=== PATIENT | female | born 1965 | race African-American/Black ===

== ENCOUNTER 2016-07-12 18:16 | Inpatient (IN) ==
--- NOTE | 2016-07-12 21:19 | Emergency Department Note ---
Arrival - Arrival Chief Complaint: Abdominal / Flank Pain Stated Complaint: Abdomen/ back pain ED Nursing Triage Note: PT C/O UPPER ABD PAIN THAT RADIATES AROUND TO RIGHT BACK X2 DAYS. PT TOOK HER LINZESS THINKING SHE WAS CONSTIPATED. STATES HAD GOOD BM BUT CONTINUES TO HAVE PAIN. +NAUSEA. Mode of Arrival: Ambulatory Limitations: No Limitations Source: Patient Time Seen by Provider: 07/12/16 21:13 - History of Present Illness HPI Narrative: Patient complains of abdominal pain which started 2 days ago. It was initially epigastric but has wrapped around the right upper quadrant into her back. She describes it as constant and sharp. She has had nausea but no vomiting. She initially thought this was due to constipation and took her lens assess which she said cleared her out, but she continues to have pain. She notes no exacerbating or relieving factors. She has had similar symptoms in the past with pancreatitis. She has been a heavy alcohol user in the past but quit 17 years ago. She denies fever, cough or other recent illness or symptoms. Date of Last Menstrual Period: MENOPAUSE Allergies/Adverse Reactions: Allergies Allergy/AdvReac Type Severity Reaction Status Date / Time iodine Allergy EYE Verified 07/12/16 18:36 SWELLING Penicillins Allergy SHORTNESS Verified 07/12/16 18:36 OF BREATH Shrimp Allergy EYE Verified 07/12/16 18:36 SWELLING Home Medications: Home Medications Medication Instructions Recorded Confirmed Type amLODIPine [Norvasc] 5 mg PO DAILY #90 tablet 01/30/15 07/12/16 Rx Cyclobenzaprine [Flexeril] 10 mg PO TID 05/13/15 07/12/16 History Hydrocodone/Acetaminophen 1 each PO Q6H PRN 07/12/16 07/12/16 History [Hydrocodon-Acetaminophn 10-325] Lisinopril/Hydrochlorothiazide 1 each PO DAILY 07/12/16 07/12/16 History [Lisinopril-Hctz 10-12.5 mg Tab] Simvastatin 20 mg PO DAILY 07/12/16 07/12/16 History Review of System - Review of System 12 point system: reviewed and no additional remarkable complaints except as stated - Review of System Constitutional: Absent: chills, fever Head/Ears/Nose/Throat: Absent: nasal drainage, sore throat Respiratory: Absent: cough, wheezing Cardiovascular: Absent: chest pain Gastrointestinal: Present: abdominal pain, nausea. Absent: vomiting Musculoskeletal: Present: back pain Medical,Surgical,& Family Hx - Medical History Cardio: History of: Hypertension No history of: Aneurysm, Cardiac Dysrhythmia, Cerebrovascular Disease, Congenital Heart Disease, CHF, CAD, [place], Pacemaker, PVD, Valvular Heart Disease, Cardiovascular Problems Psychological: History of: Depression Endocrine: History of: Dyslipidemia Gastrointestinal: History of: Pancreatitis, GI Problems (IBS) No history of: Bowel Obstruction, Clostridium Difficile, Crohn's Disease, Diverticulitis/ Diverticulosis, Esophageal Varices, GERD, Gastrointestinal Bleed , Hemorrhoids, Hematochezia, Hepatitis, Liver Problems, Polyps, Ulcerative Colitis, Gastrointestinal Cancer Musculoskeletal: History of: Back/Neck Problems, Degenerative Disk Disease ( seen at pain clinic for injections) - Surgical History Abdominal Surgeries: Surgical HX of: Cholecystectomy - Family History Family History: noncontributory - Social History Smoking Status: Current every day smoker Frequency of Alcohol Use: None Type of Drug Use: None Exam Physical Examination: GENERAL: Alert. No acute distress. HEENT: Normocephalic and atraumatic. There is no nasal drainage. No pharyngeal erythema or exudate. NECK: Normal inspection. Supple. No lymphadenopathy or meningismus. LUNGS: No respiratory distress. Clear to auscultation bilaterally, no wheezes, rales or rhonchi. HEART: Regular rate and rhythm. ABDOMEN: Obese, soft, nondistended with normal bowel sounds. Mild epigastric and right upper quadrant tenderness without guarding or rebound. BACK: Normal inspection. SKIN: Color normal. Warm and dry. EXTREMITIES: Nontender. Normal range of motion. No pedal edema. NEUROLOGICAL/PSYCHIATRIC: Alert and oriented 3 with normal mood and affect. Cranial nerves normal. No motor or sensory deficit. Vital Signs: Vital Signs Temperature 98.7 F 07/12/16 18:32 Pulse Rate 124 H 07/12/16 18:32 Respiratory Rate 18 07/12/16 18:32 Blood Pressure 192/113 07/12/16 18:32 O2 Sat by Pulse Oximetry 96 07/12/16 18:32 Course - Reevaluation(s) Reevaluation #1: I have discussed the patient with Dr. Freeman who will see him and admit. Time: 00:49 Results - Labs CBC & BMP: 07/12/16 20:57 07/12/16 20:57 Lab Results: I have reviewed the patients labs Labs: Laboratory Tests 07/12/16 07/12/16 20:57 22:31 Total Bilirubin 0.40 AST 17 ALT 19 Amylase 225 H Lipase 3030.0 H Urine Leukocytes Negative Urine RBC 1 Urine WBC 2 - Impressions KUB shows no acute abnormality. Disposition Clinical Impression: Pancreatitis, Abdominal pain Case discussed with: patient Disposition: Still a Patient Condition: Stable Time of Disposition: 00:49
[2016-07-12 23:11] LABS: Basophils % 0.3 % (0.0-0.8); Eosinophils # 0.1 10*3/uL (0.0-0.87); Eosinophils % 1.2 % (0.00-10.9); Hematocrit 42.7 VOL% (35.7-47.0); Hemoglobin 13.5 GM/DL (12.0-16.0); Immature Granulocytes % 0.3 %; Immature Granulocytes Absolute 0.04 #; Lymphocytes # 2.1 10*3/uL (1.4-4.0); Lymphocytes % 17.7 % (21.3-54.2); Mean Corpuscular HGB Conc 31.6 GM/DL (32-36); Mean Corpuscular Hemoglobin 24 PG (27-34); Mean Corpuscular Volume 74.9 FL (87-102); Mean Platelet Volume 9.9 FL (9.6-12.0); Monocytes # 0.6 10*3/uL (0.11-0.8); Monocytes % 4.7 % (1.7-12.7); Neutrophils % 75.8 % (38.7-73.9); Platelet Count 268 10*3/uL (130-400); Red Cell Distribution Width 15.9 % (9.3-17.3); White Blood Count 11.8 10*3/uL (4.5-13.71)
[2016-07-12 23:36] LABS: Albumin 3.4 G/DL (3.4-5.0); Bilirubin,Total 0.4 MG/DL (0.2-1.0); Osmolality,Calculated 285.8 MOS/KG (273-304); Potassium 3.9 MMOL/L (3.5-5.1); Total Protein 7.6 G/DL (6.4-8.3)
[2016-07-12 23:45] LABS: Apearance,Urine CLEAR (Clear); Bilirubin,Urine Negative (Negative); Blood, Urine Negative (Negative); Glucose,Urine (UA) Negative (Negative); Ketones,Urine Negative (Negative); Mucus,Urine Occasional /LPF (Occasional); Nitrite,Urine Negative (Negative); Protein,Urine Negative; RBC,Urine 1 /HPF (0-4); Squamous Epithelial Cell,Urine Occasional /HPF (0-10); Urine Color Yellow (Yellow); Urine Specific Gravity 1.011 (1.001-1.035); Urine Urobilinogen < 2.0 EU/DL (0.2-1.0); WBC,Urine 2 /HPF (0-6)
[2016-07-13] MEDS ORDERED: HYDROmorphone 2 MG/1 ML VIAL ONE (00:54)
[2016-07-13] MEDS ORDERED: ONDANSETRON 4 MG/2 ML VIAL ONE (00:54)
[2016-07-13] MEDS ORDERED: ONDANSETRON 4 MG/2 ML VIAL IV STA (00:57)
[2016-07-13] MEDS ORDERED: HYDROmorphone 2 MG/1 ML VIAL IV STA (00:58)
[2016-07-13] MEDS ORDERED: ONDANSETRON 4 MG/2 ML VIAL IV PRN (03:12)
[2016-07-13] MEDS ORDERED: HYDROmorphone 2 MG/1 ML VIAL IV PRN (03:12)
[2016-07-13] MEDS ORDERED: ACETAMINOPHEN 325 MG TABLET PO PRN (03:12)
[2016-07-13] MEDS: LEVOFLOXACIN INJ 500 MG in PREMIX 1 EACH IV SCH (03:24)
[2016-07-13] MEDS: SODIUM CHLORIDE 0.9% 1,000 ML IV SCH ×2 (03:24→14:16)
[2016-07-13] MEDS: ENOXAPARIN 30 MG/0.3 ML SYRINGE SUBCUT SCH (03:25)
[2016-07-13 06:24] LABS: Basophils % 0.2 % (0.0-0.8); Eosinophils # 0.1 10*3/uL (0.0-0.87); Eosinophils % 1.3 % (0.00-10.9); Hematocrit 41.3 VOL% (35.7-47.0); Hemoglobin 12.8 GM/DL (12.0-16.0); Immature Granulocytes % 0.2 %; Immature Granulocytes Absolute 0.02 #; Lymphocytes # 2.3 10*3/uL (1.4-4.0); Lymphocytes % 25.6 % (21.3-54.2); Mean Corpuscular Hemoglobin 24 PG (27-34); Mean Corpuscular Volume 76.3 FL (87-102); Mean Platelet Volume 10.3 FL (9.6-12.0); Monocytes # 0.6 10*3/uL (0.11-0.8); Monocytes % 6.6 % (1.7-12.7); Neutrophils # 6.1 10*3/uL (1.4-7.4); Neutrophils % 66.1 % (38.7-73.9); Platelet Count 273 10*3/uL (130-400); Red Blood Count 5.41 10*6/uL (3.8-5.5); Red Cell Distribution Width 15.9 % (9.3-17.3); White Blood Count 9.2 10*3/uL (4.5-13.71)
[2016-07-13 06:53] LABS: Alanine Aminotransferase 16 U/L (13-56); Albumin 3.1 G/DL (3.4-5.0); Alkaline Phosphatase 97 U/L (45-117); Aspartate Amino Transferase 9 U/L (0-37); Blood Urea Nitrogen 8 MG/DL (7-18); Calcium 9.1 MG/DL (8.5-10.1); Glucose 100 MG/DL (74-106); Osmolality,Calculated 283.8 MOS/KG (273-304); Potassium 4.1 MMOL/L (3.5-5.1); Sodium 144 MMOL/L (136-145); Total Protein 7.1 G/DL (6.4-8.3); Troponin I Only < 0.015 NG/ML (0.00-0.045)
--- NOTE | 2016-07-13 07:07 | Hospitalist History & Physical ---
Assessment and Plan (1) Acute pancreatitis Status: Acute Assessment and plan: The patient is admitted to the hospital with recurring acute pancreatitis apparently on account of recurring liver stones in the patient with previous cholecystectomy. The patient will be hydrated, and treated with narcotic pain relief. The usual episodes resolve over 2-3 days and this appears to be similar to previous episodes. Current Visit: No Qualifiers: Pancreatitis type: idiopathic (2) Essential hypertension Status: Chronic Current Visit: No (3) Obesity (BMI 35.0-39.9 without comorbidity) Status: Acute Current Visit: No (4) Abdominal pain Status: Acute Current Visit: Yes History of Present Illness Chief complaint: abdominal pain History of present illness: Ms. Alvarez is a 50 year old female with history of recurring pancreatitis apparently caused by passing liver stones. The patient has previous cholecystectomy. The spells of pancreatitis has not been associated with alcohol consumption. The patient's symptoms this time but can't 48 hours prior to admission to the hospital and were initially mild and similar to constipation. The patient took Linzess to relieve her constipation, but this did not alleviate the right upper quadrant pain. The pain worsened over the next 48 hours and she came to the emergency room. The patient's symptom is moderate to severe, continuous, and colicky in nature. The patient's pain is not associated with fever, chills, dysuria, shortness of breath. The patient states symptoms have not been associated with weight loss. Home Medications Medication Instructions Recorded Confirmed Type amLODIPine [Norvasc] 5 mg PO DAILY #90 tablet 01/30/15 07/12/16 Rx Cyclobenzaprine [Flexeril] 10 mg PO TID 05/13/15 07/12/16 History Hydrocodone/Acetaminophen 1 each PO Q6H PRN 07/12/16 07/12/16 History [Hydrocodon-Acetaminophn 10-325] Lisinopril/Hydrochlorothiazide 1 each PO DAILY 07/12/16 07/12/16 History [Lisinopril-Hctz 10-12.5 mg Tab] Simvastatin 20 mg PO DAILY 07/12/16 07/12/16 History Allergies Allergy/AdvReac Type Severity Reaction Status Date / Time iodine Allergy EYE Verified 07/12/16 18:36 SWELLING Penicillins Allergy SHORTNESS Verified 07/12/16 18:36 OF BREATH Shrimp Allergy EYE Verified 07/12/16 18:36 SWELLING Medical,Surgical,& Family Hx - Medical History Cardio: History of: Hypertension No history of: Aneurysm, Cardiac Dysrhythmia, Cerebrovascular Disease, Congenital Heart Disease, CHF, CAD, [place], Pacemaker, PVD, Valvular Heart Disease, Cardiovascular Problems Psychological: History of: Depression, Psychiatric Problems (PTSD) Endocrine: History of: Dyslipidemia Gastrointestinal: History of: Pancreatitis, GI Problems (IBS) No history of: Bowel Obstruction, Clostridium Difficile, Crohn's Disease, Diverticulitis/ Diverticulosis, Esophageal Varices, GERD, Gastrointestinal Bleed , Hemorrhoids, Hematochezia, Hepatitis, Liver Problems, Polyps, Ulcerative Colitis, Gastrointestinal Cancer Musculoskeletal: History of: Back/Neck Problems, Degenerative Disk Disease ( seen at pain clinic for injections) Hematology: History of: Clotting Problems (DVT) - Surgical History Cardiac Surgeries: Sugical HX of: Cardiac Catheterization Patient Denies: Femoral-Popliteal Bypass Graft, Cardiac Surgery, Carotid Endarterectomy, Internal Defibrillator, Vascular Access Devices HEENT Surgeries: Patient denies: Carotid Endarterectomy Abdominal Surgeries: Surgical HX of: Cholecystectomy Patient denies: Abdominal Surgery, Appendectomy, Colonoscopy, Gastric Bypass Surgery, EGD, Hernia Repair, Splenectomy - Family History Family History: Reports;: Family Hypertension - Social History Smoking Status: Current every day smoker Frequency of Alcohol Use: None Type of Drug Use: None Marital Status: Single Lives With:: Alone Functional capacity: independent ambulation 12 point system: reviewed and no additional remarkable complaints except as stated Exam - Constitutional Vitals: Period Temp Pulse Resp BP Sys/Rosario Pulse Ox Last 24 Hr 108-112 16-20 108-142/62-89 94-96 Exam: Constitutional System: Moderate distress on account of abdominal pain. No tremulousness. Head: Normocephalic, atraumatic. Ears, Nose and Throat System: No evidence of Otitis or Mastoiditis. No epistaxis or discharge Eyes System: Pupils equal, round, and reactive. Extraocular muscles intact. Neck: Supple, without adenopathy, No jugular venous distention. No thyromegaly , neck mass, or prior surgery apparent. Respiratory System: Chest clear to auscultation. Cardiovascular System: Heart with regular rate and rhythm. No murmur. GI System: Abdomen soft, moderate right upper quadrant tender. oactive bowel sounds present. Musculoskeletal System: limbs with no pedal edema. Full distal pulses. Neurological System: No discernable sensory deficit. No aphasia Psychiatric System: Conversation is rational Results - Labs CBC & BMP: 07/13/16 05:34 07/13/16 05:34 Lab Results: I have reviewed the past 24 hour labs Labs: Lipase elevated greater than 3000
--- NOTE | 2016-07-13 07:24 | XRay Report ---
Referring Physician: Handy Simpson Exam: XR KUB Date: July 12, 2016 at 10:43 PM Reason: Generalized abdominal pain Comparison: Abdomen 2 views October 15, 2015 Findings: There are surgical clips within the right upper quadrant, suggesting cholecystectomy. There is no evidence of bowel obstruction or free air. A 0.4 cm density is now seen at the right lower quadrant and may represent artifact or a foreign body, possibly within the cecum or soft tissues. No acute osseous process is seen. Impression: 1. No acute abdominal process is identified. 2. A 0.4 cm density is now seen at the right lower quadrant. It could represent artifact or a foreign body, possibly within the cecum or soft tissues. PROCEDURE INTERPRETED AT [facility] DEPARTMENT OF RADIOLOGY Final Report Signed by: Dr. Wander Tamez
[2016-07-13] MEDS: amLODIPine 5 MG TABLET PO SCH (08:46)
[2016-07-13] MEDS: CYCLOBENZAPRINE 10 MG TABLET PO SCH ×3 (08:46→21:38)
--- NOTE | 2016-07-13 10:37 | Gastrointestinal Consult Note ---
Assessment and Plan (1) Acute pancreatitis Status: Acute Assessment and plan: 07/13-Two day history of RUQ pain, radiating to back, worsened by meals. Hx of pancreatitis in past, now with third flare since 2012. Lipase 3000 on admission. Change to NPO, sips and chips only. Recheck lipase level. Plan and addendum to follow by DR Dior. Current Visit: No Qualifiers: Pancreatitis type: idiopathic History of Present Illness Chief complaint: Pancreatitis History of present illness: Ms. Alvarez is a 50 year old female who presents to the hospital with onset of RUQ pain x 2 days. Pt states that two days ago she had a gradual onset of RUQ pain that radiated thru to her back and around her side. She felt it was related to constipation and took a Linzess however a bowel movement did not relieve the pain. She states the pain initially was mild in nature however as the day progressed it became more severe. She states she was unable to sleep night before last therefore came to the ER for evaluation. She has a history of pancreatitis which she states this is her third flare with the first in 2012, second in 2014. She has a history of heavy alcohol use however stopped drinking 18 years ago. She states that the first flare she had drank a small beer prior to the pain onset. She denies any alcohol use at all since 2014. She also is noted in 2012 to have had a cholecystectomy and had to return for ERCP due to a common bile duct stone. She states that this flare feels typical of her usual pain with pancreatitis. Denies any fever, chills, nausea or vomiting. Denies any recent new medications. LFTs are unremarkable other than mildly elevated bilirubin at 1.5. WBC 9. Lipase 3030, amylast 225 on admission. KUB shows no acute processes. She was given clear liquid diet on admission however after our discussion she admits it worsened her pain. Will change her back to NPO with sips and chips at this time. Home Medications Medication Instructions Recorded Confirmed Type amLODIPine [Norvasc] 5 mg PO DAILY #90 tablet 01/30/15 07/12/16 Rx Cyclobenzaprine [Flexeril] 10 mg PO TID 05/13/15 07/12/16 History Hydrocodone/Acetaminophen 1 each PO Q6H PRN 07/12/16 07/12/16 History [Hydrocodon-Acetaminophn 10-325] Lisinopril/Hydrochlorothiazide 1 each PO DAILY 07/12/16 07/12/16 History [Lisinopril-Hctz 10-12.5 mg Tab] Simvastatin 20 mg PO DAILY 07/12/16 07/12/16 History Allergies Allergy/AdvReac Type Severity Reaction Status Date / Time iodine Allergy EYE Verified 07/12/16 18:36 SWELLING Penicillins Allergy SHORTNESS Verified 07/12/16 18:36 OF BREATH Shrimp Allergy EYE Verified 07/12/16 18:36 SWELLING Medical,Surgical,& Family Hx - Medical History Cardio: History of: Hypertension No history of: Aneurysm, Cardiac Dysrhythmia, Cerebrovascular Disease, Congenital Heart Disease, CHF, CAD, [place], Pacemaker, PVD, Valvular Heart Disease, Cardiovascular Problems Psychological: History of: Depression, Psychiatric Problems (PTSD) Endocrine: History of: Dyslipidemia Gastrointestinal: History of: Pancreatitis, GI Problems (IBS) No history of: Bowel Obstruction, Clostridium Difficile, Crohn's Disease, Diverticulitis/ Diverticulosis, Esophageal Varices, GERD, Gastrointestinal Bleed , Hemorrhoids, Hematochezia, Hepatitis, Liver Problems, Polyps, Ulcerative Colitis, Gastrointestinal Cancer Musculoskeletal: History of: Back/Neck Problems, Degenerative Disk Disease ( seen at pain clinic for injections) Hematology: History of: Clotting Problems (DVT) - Surgical History Cardiac Surgeries: Sugical HX of: Cardiac Catheterization Patient Denies: Femoral-Popliteal Bypass Graft, Cardiac Surgery, Carotid Endarterectomy, Internal Defibrillator, Vascular Access Devices HEENT Surgeries: Patient denies: Carotid Endarterectomy Abdominal Surgeries: Surgical HX of: Cholecystectomy Patient denies: Abdominal Surgery, Appendectomy, Colonoscopy, Gastric Bypass Surgery, EGD, Hernia Repair, Splenectomy - Family History Family History: Reports;: Family Hypertension - Social History Smoking Status: Current every day smoker Frequency of Alcohol Use: None Type of Drug Use: None 12 point system: reviewed and no additional remarkable complaints except as stated - Constitutional Constitutional: Present: as per HPI - EENT Eyes: Present: as per HPI Ears: Present: as per HPI Nose, mouth and throat: Present: as per HPI - Cardiovascular Cardiovascular: Present: as per HPI - Respiratory Respiratory: Present: as per HPI - Gastrointestinal Gastrointestinal: Present: as per HPI, abdominal pain - Genitourinary Genitourinary: Present: as per HPI - Musculoskeletal Musculoskeletal: Present: as per HPI - Neurological Neurological: Present: as per HPI - Psychiatric Psychiatric: Present: as per HPI - Endocrine Endocrine: Present: as per HPI - Hematologic/Lymphatic Hematologic/Lymphatic: Present: as per HPI Exam - Constitutional Vitals: Period Temp Pulse Resp BP Sys/Rosario Pulse Ox Last 24 Hr 97.4 F 107-112 16-22 108-142/62-89 94-96 General appearance: no acute distress, over weight - Head Head exam: Present: normal inspection, normocephalic - Eye Eye exam: Present: other (lids and conjunctiva unremarkable). Absent: scleral icterus - ENT ENT exam: Present: normal exam, normal oropharynx - Neck Neck exam: Present: normal inspection - Respiratory Respiratory exam: Present: clear to auscultation bilaterally. Absent: rales, rhonchi, wheezes - Cardiovascular Cardiovascular exam: Present: regular rate and rhythm. Absent: diastolic murmur , JVD, systolic murmur - GI/Abdominal GI/Abdominal exam: Present: normal bowel sounds, tenderness, soft. Absent: ascites, distended, mass, organomegaly - Extremities Exam Extremities exam: Present: normal inspection, full ROM - Back Exam Back exam: Present: normal inspection - Neurological Exam Neurological exam: Present: alert, oriented X3 - Psychiatric Psychiatric exam: Present: normal affect, normal mood - Skin Skin exam: Present: normal color, warm, dry Results - Labs CBC & BMP: 07/13/16 05:34 07/13/16 05:34 Lab Results: I have reviewed the past 24 hour labs
[2016-07-14] MEDS: SODIUM CHLORIDE 0.9% 1,000 ML IV SCH ×3 (00:23→21:01)
[2016-07-14 06:03] LABS: Calcium 8.7 MG/DL (8.5-10.1); Magnesium 1.9 MG/DL (1.8-2.4); Osmolality,Calculated 285.7 MOS/KG (273-304); Potassium 4.1 MMOL/L (3.5-5.1)
[2016-07-14] MEDS ORDERED: MAGNESIUM HYDROXIDE SUSP 30 ML UDCUP PO ONE (08:54)
--- NOTE | 2016-07-14 08:58 | Hospitalist Progress Note ---
Assessment and Plan (1) Pancreatitis Status: Acute Assessment and plan: Impression: 1. Acute pancreatitis, etiology not known. She is status post cholecystectomy. This may be medication induced. Plan: She appears to have improved. We will advance her diet. She is specifically requesting a cup of coffee and some Jell-O. We will try some milk of magnesia for constipation. She may be about ready for discharge in the next 1 or 2 days. This note was completed using [employer] voice recognition software. There may be food quality technician errors as a result. Current Visit: Yes Hospitalist: Subjective Interval history: We are following the patient for pancreatitis. The patient's diet had been advanced yesterday, but she apparently developed some worsening abdominal pain. She says that she like to try some coffee and mashed potatoes today. She denies any pain at this time. Her only complaint is that her bowels have not moved in the past 3 days or so. Exam - Constitutional Vitals: Period Temp Pulse Resp BP Sys/Rosario Pulse Ox Last 24 Hr 97 F-98.8 F 91-115 18-22 116-154/73-107 94-99 Heart is regular with no murmur or gallop. Lungs are clear with no rales or wheezes. Abdomen is protuberant and soft with occasional bowel sounds. There is no tenderness noted. Results - Labs CBC & BMP: 07/13/16 05:34 07/14/16 04:54 Lab Results: I have reviewed the past 24 hour labs
[2016-07-14] MEDS: ENOXAPARIN 30 MG/0.3 ML SYRINGE SUBCUT SCH (09:18)
[2016-07-14] MEDS: CYCLOBENZAPRINE 10 MG TABLET PO SCH ×3 (09:18→21:01)
[2016-07-14] MEDS: amLODIPine 5 MG TABLET PO SCH (09:19)
[2016-07-14] MEDS: LEVOFLOXACIN INJ 500 MG in PREMIX 1 EACH IV SCH (09:49)
--- NOTE | 2016-07-14 15:12 | Gastrointestinal Progress Note ---
Assessment and Plan (1) Acute pancreatitis Status: Acute Assessment and plan: Patient admitted with recurrent acute pancreatitis appears improved. She is currently symptom-free. Agree with advancing diet and, if tolerates, could probably discharge tomorrow. We are holding her lisinopril/hydrochlorothiazide and Lipitor for now, both of which have been associated with acute pancreatitis. Outpatient MRI of pancreas is also planned in 2 or 3 weeks. Current Visit: No Qualifiers: Pancreatitis type: idiopathic Gastroenterology - PN: Subj Interval history: Patient appears better with no abdominal pain or nausea. She is tolerating liquid diet so far. Exam (Progress Note) - Constitutional Vitals: Period Temp Pulse Resp BP Sys/Rosario Pulse Ox Last 24 Hr 97.7 F-98.8 F 91-115 18-21 116-154/73-90 94-99 General appearance: no acute distress, over weight - Head Head exam: Present: normocephalic, atraumatic - Eye Eye exam: Present: EOMI. Absent: scleral icterus - Respiratory Respiratory exam: Present: clear to auscultation bilaterally. Absent: wheezes - GI/Abdominal GI/Abdominal exam: Present: normal bowel sounds, soft. Absent: distended, organomegaly, tenderness - Extremities Exam Extremities exam: Absent: calf tenderness, edema - Neurological Exam Neurological exam: Present: alert, oriented X3, CN II-XII intact - Psychiatric Psychiatric exam: Present: normal affect, normal mood - Skin Skin exam: Present: warm, dry Results - Labs CBC & BMP: 07/13/16 05:34 07/14/16 04:54 Lab Results: I have reviewed the past 24 hour labs
[2016-07-15] MEDS: SODIUM CHLORIDE 0.9% 1,000 ML IV SCH (06:59)
[2016-07-15] MEDS: CYCLOBENZAPRINE 10 MG TABLET PO SCH (08:32)
[2016-07-15] MEDS: ENOXAPARIN 30 MG/0.3 ML SYRINGE SUBCUT SCH (08:32)
[2016-07-15] MEDS: LEVOFLOXACIN INJ 500 MG in PREMIX 1 EACH IV SCH (08:32)
[2016-07-15] MEDS: amLODIPine 5 MG TABLET PO SCH (08:32)
--- NOTE | 2016-07-15 09:05 | Discharge Summary ---
Hospital Course - Hospital Course Hospital Course: Discharge diagnosis: #1. Acute pancreatitis, possibly medication induced #2. Hypertension The patient presented to the hospital for evaluation of some abdominal pain. She is known to have pancreatitis in the past. Etiology has never been determined with certainty. She was seen by GI. The question of medication- induced pancreatitis was raised, as she is taking both lisinopril and HCTZ. After day or so, her symptoms improved. She was given a regular diet and tolerated this. On the day of discharge, she cleaned her plate and requested that we let her go home. We will get an outpatient MRI of the pancreas in the next few weeks. This note was completed using [employer] voice recognition software. There may be medical charge entry specialist errors as a result. Diagnosis - Discharge Diagnosis (1) Pancreatitis Status: Acute Discharge Plan - Discharge Data Disposition: Disch To Home/Self Care Condition at Discharge: Stable Discharge Diet: advance to your usual diet Activity: resume usual activities as tolerated Hygiene: no restrictions Weight Bearing at Discharge: full weight bearing Driving: no restrictions - Discharge Medications Continue amLODIPine [Norvasc] 5 mg PO DAILY #90 tablet Cyclobenzaprine [Flexeril] 10 mg PO TID Hydrocodone/Acetaminophen [Hydrocodon-Acetaminophn 10-325] 1 each PO Q6H PRN PRN Reason: Pain Simvastatin 20 mg PO DAILY Discontinued Lisinopril/Hydrochlorothiazide [Lisinopril-Hctz 10-12.5 mg Tab] 1 each PO DAILY - Follow Up or Referral Follow Up: Handy Dior MD [Physician] - - Forms/Instructions Additional Discharge Instructions: Please schedule OP MRI of pancreas 2-3 weeks Exam - Constitutional Vitals: Period Temp Pulse Resp BP Sys/Rosario Pulse Ox Last 24 Hr 97.7 F-98.7 F 93-109 18-20 128-148/76-89 96-98 Heart is regular with no murmur or gallop. Lungs are clear with no rales or wheezes. Abdomen is obese and soft with occasional bowel sounds and no tenderness. DS: Provider Date of admission: 07/13/16 01:00 Primary care physician: . No PCP Attending physician on admission: Julianne Monreal MD Consults: 07/13/16 03:12 Consult to Physician [CONS] Routine Comment: abdominal pain, elevated lipase Consulting Provider: Handy Dior Person Notified: TIFFANY Date Notified: 07/13/16 Time Notified: 09:16 Discharging clinician: John Slade MD Expected date of discharge: 07/15/16
[2016-07-15 14:34] VITALS: BP 154/89
== END 2016-07-15 11:30 | disposition home or self-care (01) | DRG 440 ==
LOC: N.ED 18:16 → N.EDINP 07-13 01:00 → SUATTDRO 07-13 01:00 → N.2E 07-13 02:11
PROVIDERS: ADMIT Internal Medicine; ATTEND Internal Medicine Geriatric Medicine

== ENCOUNTER 2017-03-10 21:34 | Observation (INO) ==
--- NOTE | 2017-03-10 23:11 | EKG Report ---
Stationary ECG Study [facility] ER Test Date: 03/10/2017 11:09:37 PM Pat Name: BRIANNA ANDERSON Department: Room: Gender: F Audio Visual Aide: : 1965 Requested by: Mal Sears Order Number: [id number] Reading MD: WARREN GALLARDO Intervals [place] Rate: 74 P: 45 PA: 144 QRS: 62 QRSD: 86 T: 74 QT: 378 QTc: 406 Interpretive Statements SINUS RHYTHM Electronically Signed On 03-15-17 06:15:12 CDT by WARREN GALLARDO [email or web address]
[2017-03-10 23:48] LABS: Basophils # 0.1 10*3/uL (0.0-0.2); Basophils % 0.5 % (0.0-0.8); Eosinophils # 0.2 10*3/uL (0.0-0.87); Eosinophils % 2.1 % (0.00-10.9); Hematocrit 42.6 VOL% (35.7-47.0); Hemoglobin 13.5 GM/DL (12.0-16.0); Immature Granulocytes % 0.3 %; Immature Granulocytes Absolute 0.03 #; Lymphocytes # 2.3 10*3/uL (1.4-4.0); Lymphocytes % 25.1 % (21.3-54.2); Mean Corpuscular HGB Conc 31.7 GM/DL (32-36); Mean Corpuscular Hemoglobin 24 PG (27-34); Mean Corpuscular Volume 74.2 FL (87-102); Mean Platelet Volume 10.8 FL (9.6-12.0); Monocytes # 0.6 10*3/uL (0.11-0.8); Monocytes % 6.4 % (1.7-12.7); Neutrophils % 65.6 % (38.7-73.9); Platelet Count 237 T/CUMM (130-400); Red Blood Count 5.74 MC/CUMM (3.8-5.5); Red Cell Distribution Width 18.1 % (9.3-17.3); White Blood Count 9.2 T/CUMM (4-12)
[2017-03-11 00:13] LABS: Alanine Aminotransferase 23 U/L (13-56); Albumin 3.4 G/DL (3.4-5.0); Alkaline Phosphatase 114 U/L (45-117); Aspartate Amino Transferase 14 U/L (0-37); Bilirubin,Total < 0.39 MG/DL (0.2-1.0); Blood Urea Nitrogen 9 MG/DL (7-18); Glucose 125 MG/DL (74-106); Osmolality,Calculated 280.3 MOS/KG (273-304); Potassium 4.1 MMOL/L (3.5-5.1); Sodium 141 MMOL/L (136-145); Total Protein 7.3 G/DL (6.4-8.3); Troponin I Only < 0.015 NG/ML (0.00-0.045)
[2017-03-11] MEDS ORDERED: HYDROmorphone 2 MG/1 ML VIAL IV STA (00:29)
--- NOTE | 2017-03-11 00:33 | Emergency Department Note ---
Balaji Cronin Manpreet, am scribing for, and in the presence of, Mal Sears MD 22:44 . Orion Cronin Hans, MD, personally performed the services described in this documentation, ascribed by Yusef Carpio in my presence, and it is both accurate and complete . Arrival - Arrival Chief Complaint: Abdominal / Flank Pain Stated Complaint: Stomach,back & leg pain/spasm ED Nursing Triage Note: pt to triage w c/o abd pain that radiates to back and neck. pt was seen last night for abdominal pain and states she has been taking the medicines prescribed with no relief. Mode of Arrival: Ambulatory Limitations: No Limitations Source: Patient Time Seen by Provider: 03/10/17 22:15 - History of Present Illness HPI Narrative: Pt is a 51 y/o female who presents to the ED with CC of Abd pain onset 3 days ago. Pt states the pain starts at the center of her chest and goes down to her lower Abd on the right side. Pt denies any N/V/D or blood in her stool. Pt also c/o cramping in her legs. Pt was seen in the ED yesterday and told she might have a gas bubble. Pt denies any EtOH use but reports of smoking 6 cigarettes a day. No other pains/complaints reported to the ED. Onset (ago): day(s) (3 days) Consistency: constant Severity: moderate Allergies/Adverse Reactions: Allergies Allergy/AdvReac Type Severity Reaction Status Date / Time iodine Allergy EYE Verified 03/10/17 21:54 SWELLING Penicillins Allergy SHORTNESS Verified 03/10/17 21:54 OF BREATH Shrimp Allergy EYE Verified 03/10/17 21:54 SWELLING Home Medications: Home Medications Medication Instructions Recorded Confirmed Type amLODIPine [Norvasc] 5 mg PO DAILY #90 tablet 01/30/15 03/10/17 Rx Hydrocodone/Acetaminophen 1 each PO Q6H PRN 07/12/16 03/10/17 History [Hydrocodon-Acetaminophn 10-325] Cyclobenzaprine [Flexeril] 10 mg PO TID #14 tablet 03/09/17 03/10/17 Rx HYDROcodone/ACETAMIN 7.5-325 1 tablet PO Q6H #14 tablet 03/09/17 03/10/17 Rx [[place] 7.5-325] Review of System - Review of System 12 point system: reviewed and no additional remarkable complaints except as stated - Review of System Constitutional: Absent: chills, diaphoresis, fever Respiratory: Absent: cough, respiratory distress, wheezing Cardiovascular: Absent: chest pain Gastrointestinal: Present: abdominal pain. Absent: nausea, vomiting, diarrhea Musculoskeletal: Present: leg pain (Cramping in leg). Absent: back pain, neck pain Neurological: Absent: headache, weakness, numbness, paresthesias Medical,Surgical,& Family Hx - Medical History Cardio: History of: Hypertension No history of: Aneurysm, Cardiac Dysrhythmia, Cerebrovascular Disease, Congenital Heart Disease, CHF, CAD, [place], Pacemaker, PVD, Valvular Heart Disease, Cardiovascular Problems Psychological: History of: Depression, Psychiatric Problems (PTSD) Endocrine: History of: Dyslipidemia Gastrointestinal: History of: Pancreatitis, GI Problems (IBS) No history of: Bowel Obstruction, Clostridium Difficile, Crohn's Disease, Diverticulitis/ Diverticulosis, Esophageal Varices, GERD, Gastrointestinal Bleed , Hemorrhoids, Hematochezia, Hepatitis, Liver Problems, Polyps, Ulcerative Colitis, Gastrointestinal Cancer Musculoskeletal: History of: Back/Neck Problems, Degenerative Disk Disease ( seen at pain clinic for injections) Hematology: History of: Clotting Problems (DVT) - Surgical History Cardiac Surgeries: Sugical HX of: Cardiac Catheterization Patient Denies: Femoral-Popliteal Bypass Graft, Cardiac Surgery, Carotid Endarterectomy, Internal Defibrillator, Vascular Access Devices HEENT Surgeries: Patient denies: Carotid Endarterectomy Abdominal Surgeries: Surgical HX of: Cholecystectomy Patient denies: Abdominal Surgery, Appendectomy, Colonoscopy, Gastric Bypass Surgery, EGD, Hernia Repair, Splenectomy - Family History Family History: Reports;: Family Hypertension - Social History Smoking Status: Current every day smoker Frequency of Alcohol Use: None Type of Drug Use: None Exam Vital Signs: Vital Signs Temperature 97.6 F 03/10/17 21:49 Pulse Rate 96 H 03/10/17 21:49 Respiratory Rate 14 03/10/17 21:49 Blood Pressure 183/110 03/10/17 21:49 O2 Sat by Pulse Oximetry 98 03/10/17 21:49 - General General appearance: alert, in no apparent distress - Head Head exam: Present: atraumatic, normocephalic, normal inspection - Eye Eye exam: Present: normal appearance, PERRL, EOMI - ENT ENT exam: Present: normal exam, normal oropharynx, mucous membranes moist, TM's normal bilaterally - Neck Neck exam: Present: normal inspection, full ROM, trachea midline. Absent: tenderness - Chest Chest inspection: Present: normal inspection, symmetric chest wall rise. Absent : tenderness - Respiratory Respiratory exam: Present: normal lung sounds bilaterally. Absent: prolonged expiratory phase, respiratory distress - Cardiovascular Cardiovascular exam: Present: regular rate, normal rhythm, normal heart sounds. Absent: murmur, rubs, gallop - Abdominal Exam Abdominal exam: Present: soft, tenderness (Upper epigastric and RUQ tenderness) , normal bowel sounds - Extremities Exam Extremities exam: Present: normal inspection, full ROM. Absent: tenderness - Back Exam Back exam: Present: normal inspection, full ROM. Absent: tenderness - Neurological Exam Neurological exam: Present: alert, oriented X3, CN II-XII intact, reflexes normal - Psychiatric Psychiatric exam: Present: normal affect, normal mood - Skin Skin exam: Present: warm, dry, intact, normal color. Absent: pallor Course Course Narrative: The patient was evaluated in the ER with labwork and x rays. She was diagnosed with pancreatitis. She has had recurrent pancreatitis and her lipase is trending up now. I discussed her presentation with the hospitalist fish conservationist and he agreed to see her for admission and treatment of her pancreatitis. Results - Labs CBC & BMP: 03/10/17 23:04 03/10/17 23:04 Lab Results: I have reviewed the patients labs Labs: Laboratory Tests 03/10/17 23:04 WBC 9.2 RBC 5.74 H Hgb 13.5 Hct 42.6 MCV 74.2 L MCH 24 L MCHC 31.7 L RDW 18.1 H Plt Count 237 MPV 10.8 Laboratory Tests 03/10/17 23:04 Sodium 141 Potassium 4.1 Chloride 105 Carbon Dioxide 31 Anion Gap 9.1 BUN 9 Creatinine 0.80 GFR Calculation 118 BUN/Creatinine Ratio 11.00 Glucose 125 H AST 14 Troponin I < 0.015 Globulin 3.9 H Albumin/Globulin Ratio 0.8 L Lipase 532.0 H D Disposition Clinical Impression: Pancreatitis, Abdominal pain Case discussed with: patient Disposition: Still a Patient Condition: Stable Instructions: Pancreatitis (ED) Time of Disposition: 00:32
[2017-03-11 00:43] LABS: Apearance,Urine CLEAR (Clear); Bilirubin,Urine Negative (Negative); Blood, Urine Negative (Negative); Glucose,Urine (UA) 50 mg/dL (Negative); Ketones,Urine Negative (Negative); Mucus,Urine Occasional /LPF (Occasional); Nitrite,Urine Negative (Negative); Protein,Urine Negative; Squamous Epithelial Cell,Urine Occasional /HPF (0-10); Urine Color Yellow (Yellow); Urine Urobilinogen < 2.0 EU/DL (0.2-1.0); WBC,Urine 1 /HPF (0-6)
[2017-03-11] MEDS ORDERED: HYDROmorphone 2 MG/1 ML VIAL ONE (01:01)
--- NOTE | 2017-03-11 01:29 | Hospitalist History & Physical ---
Assessment and Plan - Time spent with patient Time spent with patient: Less than 30 minutes Time spent discussing smoking cessation with patient: 3 to 10 minutes (1) Pancreatitis Status: Chronic Assessment and plan: Chronic history of pancreatitis thought to originate from 9 years of alcohol and drug abuse Lipase increased from 319 yesterday to 532 today We will repeat labs at 7 AM Fluid resuscitation Pain and nausea medicines as needed Sliding scale insulin with Accu-Cheks every 6 Patient is currently afebrile with no leukocytosis will hold antibiotics for now UDS pending N.p.o. except for ice chips for now. Will advance as tolerated. Current Visit: Yes History of Present Illness Chief complaint: epigastric pain History of present illness: Called to the ER for Ms. Alvarez who is a 51 year old female presents to the ED tonight complaining of epigastric pain 2 days. Patient states pain is steady and radiates to her back. She was seen here last night in the ER for chest pain and was discharged with diagnosis of flatulence. She states pain began to get worse during the day after she ate 2 pieces of fried chicken. Patient denies chest pain, nausea, vomiting, diarrhea, fevers, and cough but admits to being short of breath at times. She has a history of pancreatitis that was diagnosed in 2015. She admits to being a past heavy alcohol drinker and drug user but quit 18 years ago. She is still smoking 7-8 cigarettes a day for the past 7 years. She has been admitted several times in the past 3 years for pancreatitis. At one point her lisinopril and Lipitor was thought to be the origin. She was changed to Norvasc and hydrochlorothiazide. She also had a sphincterotomy for common bile duct after her cholecystectomy in 2014. She currently does not have a GI physician. Other past medical history includes dyslipidemia, hypertension, degenerative disc disease in back and neck where she receives pain management from Dr. Robledo, DVT, depression, LVH, and CAD. She will be admitted to the hospital medicine service where she will receive IV resuscitation, pain and nausea medications as needed, and bowel rest. We will hold her chronic pain medication since she will be getting IV as needed meds but we will continue her Norvasc. Home Medications Medication Instructions Recorded Confirmed Type amLODIPine [Norvasc] 5 mg PO DAILY #90 tablet 01/30/15 03/10/17 Rx Hydrocodone/Acetaminophen 1 each PO Q6H PRN 07/12/16 03/10/17 History [Hydrocodon-Acetaminophn 10-325] Cyclobenzaprine [Flexeril] 10 mg PO TID #14 tablet 03/09/17 03/10/17 Rx HYDROcodone/ACETAMIN 7.5-325 1 tablet PO Q6H #14 tablet 03/09/17 03/10/17 Rx [[place] 7.5-325] Allergies Allergy/AdvReac Type Severity Reaction Status Date / Time iodine Allergy EYE Verified 03/10/17 21:54 SWELLING Penicillins Allergy SHORTNESS Verified 03/10/17 21:54 OF BREATH Shrimp Allergy EYE Verified 03/10/17 21:54 SWELLING Medical,Surgical,& Family Hx - Medical History Cardio: History of: CAD, Hypertension No history of: Aneurysm, Cardiac Dysrhythmia, Cerebrovascular Disease, Congenital Heart Disease, CHF, [place], Pacemaker, PVD, Valvular Heart Disease, Cardiovascular Problems Psychological: History of: Bipolar Disorder, Depression, Schizophrenia, Psychiatric Problems (PTSD) Neurology: No history of: Neurological Problems HEENT: No history of: HEENT Problems Endocrine: History of: Dyslipidemia Respiratory: No history of: COPD, Respiratory Problems Renal: No history of: Renal Problems Genitourinary: No history of: Problems Gastrointestinal: History of: Pancreatitis, GI Problems (IBS) No history of: Bowel Obstruction, Clostridium Difficile, Crohn's Disease, Diverticulitis/ Diverticulosis, Esophageal Varices, GERD, Gastrointestinal Bleed , Hemorrhoids, Hematochezia, Hepatitis, Liver Problems, Polyps, Ulcerative Colitis, Gastrointestinal Cancer Musculoskeletal: History of: Back/Neck Problems, Degenerative Disk Disease ( seen at pain clinic for injections) Hematology: History of: Clotting Problems (DVT) - Surgical History Cardiac Surgeries: Sugical HX of: Cardiac Catheterization Patient Denies: Femoral-Popliteal Bypass Graft, Cardiac Surgery, Carotid Endarterectomy, Internal Defibrillator, Vascular Access Devices HEENT Surgeries: Patient denies: Carotid Endarterectomy Abdominal Surgeries: Surgical HX of: Cholecystectomy Patient denies: Abdominal Surgery, Appendectomy, Colonoscopy, Gastric Bypass Surgery, EGD, Hernia Repair, Splenectomy - Family History Family History: Reports;: Family Hypertension - Social History Smoking Status: Current every day smoker Have you smoked in the last 12 months: Yes (7-8 cigs/day) Time spent discussing smoking cessation with patient: 3 to 10 minutes Frequency of Alcohol Use: None Type of Drug Use: None Marital Status: Single Lives With:: god sister Functional capacity: independent ambulation - Constitutional Constitutional: Absent: anorexia, chills, fatigue, fever(s), night sweats, weakness - Cardiovascular Cardiovascular: Present: dyspnea. Absent: chest pain at rest, chest pain with activity, dyspnea on exertion, edema, orthopnea, palpitations - Respiratory Respiratory: Absent: cough, dyspnea, hemoptysis - Gastrointestinal Gastrointestinal: Present: abdominal pain, cramping. Absent: change in bowel habits, constipation, diarrhea, nausea, vomiting - Psychiatric Psychiatric: Absent: anxiety Exam - Constitutional Vitals: Period Temp Pulse Resp BP Sys/Rosario Pulse Ox Last 24 Hr 97.6 F-97.6 F 96-96 14-14 183-183/110-110 98 General appearance: no acute distress, over weight - Head Head exam: Present: normal inspection, normocephalic - Eye Eye exam: Present: EOMI Pupils: Present: TONI, normal accommodation - ENT ENT exam: Present: normal exam - Neck Neck exam: Present: normal inspection - Respiratory Respiratory exam: Present: clear to auscultation bilaterally (Respirations even and unlabored. Symmetrical rise and fall of chest.). Absent: accessory muscle use - Cardiovascular Cardiovascular exam: Present: regular rate and rhythm. Absent: diastolic murmur , systolic murmur - GI/Abdominal GI/Abdominal exam: Present: hypoactive bowel sounds (To epigastric area), tenderness (to epigastric area), soft (Protuberant) - Extremities Exam Extremities exam: Present: normal inspection, normal capillary refill, full ROM. Absent: edema - Back Exam Back exam: Present: normal inspection - Neurological Exam Neurological exam: Present: alert, oriented X3 (Answers questions appropriately. Makes good eye contact.) - Psychiatric Psychiatric exam: Present: normal affect - Skin Skin exam: Present: normal color, warm, dry, intact Results - Labs CBC & BMP: 03/10/17 23:04 03/10/17 23:04 Lab Results: I have reviewed the past 24 hour labs
[2017-03-11 01:39] LABS: Barbiturates Screen,Urine Negative (Negative); Benzodiazepines Screen,Urine Negative (Negative); Cannabinoid Screen,Urine Negative (Negative); Opiate Screen,Urine Positive (Negative); Phencyclidine Screen,Urine Negative (Negative)
[2017-03-11] MEDS ORDERED: SODIUM CHLORIDE 0.9% 1,000 ML IV ONE (02:35)
[2017-03-11] MEDS ORDERED: GLUCAGON 1 MG VIAL IM PRN (02:35)
[2017-03-11] MEDS ORDERED: ONDANSETRON 4 MG/2 ML VIAL IV PRN (02:35)
[2017-03-11] MEDS ORDERED: KETOROLAC 30 MG/1 ML VIAL IV PRN (02:35)
[2017-03-11] MEDS ORDERED: DEXTROSE 50% 25 GM/50 ML SYRINGE IV PRN (02:35)
[2017-03-11] MEDS: HYDROmorphone 2 MG/1 ML VIAL IV PRN ×4 (03:19→19:42)
[2017-03-11] MEDS: SODIUM CHLORIDE 0.9% 1,000 ML IV SCH ×3 (04:30→19:41)
[2017-03-11] MEDS: INSULIN REGULAR 100 UNIT/ML SUBCUT SCH ×3 (06:38→18:05)
--- NOTE | 2017-03-11 07:24 | XRay Report ---
History: Abdominal pain Date: 03/10/2017 Study: Flat and erect abdomen Comparison exam: July 12, 2016 There is no evidence of pneumoperitoneum. The bowel gas pattern is nonobstructive without gross mass lesion. Some scattered stool and air are noted in the colon. There is a moderate amount of retained stool in the colon. Surgical clips overlie the right upper abdomen. There is no acute osseous abnormality. Impression: No acute abdominal process. Moderate amount of retained stool in the colon PROCEDURE INTERPRETED AT [facility] DEPARTMENT OF RADIOLOGY Final Report Signed by: Dr. Jessica Dior
--- NOTE | 2017-03-11 07:28 | XRay Report ---
History: Epigastric pain. History of hypertension and coronary artery disease. Pain radiating to back Date: 03/10/2017 Study: Chest x-ray PA and lateral Comparison exam: March 09, 2017 The cardiac silhouette is upper normal size. There is no mediastinal mass. The pulmonary vasculature is not engorged. There is no pleural effusion. There is no confluent infiltrate. There is some minor platelike subsegmental atelectasis in the right lung base. There is some chronic interstitial coarsening in the lung bases. Osseous structures are unremarkable. Impression: Mild platelike subsegmental atelectasis in the right lung base. Mild interstitial scarring in the lower lungs. PROCEDURE INTERPRETED AT [facility] DEPARTMENT OF RADIOLOGY Final Report Signed by: Dr. Jessica Dior
[2017-03-11 07:30] LABS: Basophils % 0.5 % (0.0-0.8); Eosinophils # 0.2 10*3/uL (0.0-0.87); Eosinophils % 2.7 % (0.00-10.9); Hematocrit 37.9 VOL% (35.7-47.0); Immature Granulocytes % 0.4 %; Immature Granulocytes Absolute 0.03 #; Lymphocytes # 2.5 10*3/uL (1.4-4.0); Lymphocytes % 32.5 % (21.3-54.2); Mean Corpuscular HGB Conc 31.7 GM/DL (32-36); Mean Corpuscular Hemoglobin 23 PG (27-34); Mean Corpuscular Volume 73.4 FL (87-102); Mean Platelet Volume 10.8 FL (9.6-12.0); Monocytes # 0.6 10*3/uL (0.11-0.8); Monocytes % 7.1 % (1.7-12.7); Neutrophils # 4.4 10*3/uL (1.4-7.4); Neutrophils % 56.8 % (38.7-73.9); Platelet Count 223 T/CUMM (130-400); Red Blood Count 5.16 MC/CUMM (3.8-5.5); Red Cell Distribution Width 17.2 % (9.3-17.3); White Blood Count 7.7 T/CUMM (4-12)
[2017-03-11 07:56] LABS: Magnesium 2.1 MG/DL (1.8-2.4)
[2017-03-11 08:03] LABS: Bilirubin,Total 0.9 MG/DL (0.2-1.0); Calcium 8.6 MG/DL (8.5-10.1); Osmolality,Calculated 284.8 MOS/KG (273-304); Potassium 4.2 MMOL/L (3.5-5.1); Total Protein 6.7 G/DL (6.4-8.3)
[2017-03-11] MEDS: ENOXAPARIN 40 MG/0.4 ML SYRINGE SUBCUT SCH (09:22)
[2017-03-11] MEDS: amLODIPine 5 MG TABLET PO SCH ×2 (10:24→14:53)
[2017-03-11] MEDS: PANTOPRAZOLE 40 MG VIAL IV SCH (10:36)
[2017-03-12] MEDS: INSULIN REGULAR 100 UNIT/ML SUBCUT SCH ×2 (01:15→06:29)
[2017-03-12] MEDS: HYDROmorphone 2 MG/1 ML VIAL IV PRN ×2 (01:24→07:54)
[2017-03-12] MEDS: SODIUM CHLORIDE 0.9% 1,000 ML IV SCH (04:02)
[2017-03-12 07:51] VITALS: BP 153/86
[2017-03-12] MEDS: ENOXAPARIN 40 MG/0.4 ML SYRINGE SUBCUT SCH (08:00)
[2017-03-12] MEDS: PANTOPRAZOLE 40 MG VIAL IV SCH (08:00)
[2017-03-12] MEDS: amLODIPine 5 MG TABLET PO SCH (08:00)
--- NOTE | 2017-03-12 09:29 | Discharge Summary ---
<Padmaja Mendoza - Last Filed: 03/12/17 09:54> Hospital Course - Hospital Course Hospital Course: Ms Alvarez 51 y/o w/PMHx of HTN, Depression, PTSD, DVT, chronic back and neck problems presented to the ED 03/10/17 for further evaluation of abdominal pain for 3 days to right lower quadrant. IN ED: Lipase 532.0, glucose 125, Urinalysis negative for infection. Toxicology positive for opiates. Abd xray: nothing acute, moderate stool retained in colon. CXR: nothing acute. Hospital Medicine was consulted for admission and further evaluation. IV hydration initiated, sliding scale protocol, as needed anti-emetics and pain medications started and bowel rest except ice chips and medications. With current plan of care throughout hospitalization the patient remained stable, labs and symptoms greatly improved. Today 03/12/17 patient is stable and symptoms improved. She is tolerating diet. Labs improved and remain stable. She will be discharged home today and will need to follow up with Primary Care Physician in one week. Further recommendations with discharge planning and care to follow per Dr Monreal I have seen and examined Mrs Alvarez and agree with the summary above. I have made her discharge plan and reconciled her meds. She is feeling much better, tolerating a regular diet and is ready to go home. Her abdomen is soft and nontender. 5 minutes spent counselling smoking cessation. - Time spent with patient Time with patient DS: Greater than 30 minutes (32 minutes with talking with patient, paperwork, and reviewing chart) Diagnosis - Discharge Diagnosis (1) Acute pancreatitis Status: Resolved Specialty Discharge - Follow Up or Referrals Follow up with: Jean Paul Tamayo in residents clinic at [facility] [Other] (1 week) Discharge Plan - Discharge Data Disposition: Disch To Home/Self Care Condition at Discharge: Stable Discharge Diet: advance to your usual diet, other (avoid spicy foods) Activity: resume usual activities as tolerated Hygiene: no restrictions Weight Bearing at Discharge: full weight bearing Driving: not until seen by doctor Contact your physician if you experience:: fever over 101, Nausea/Vomiting, pain uncontrolled by pain medications - Discharge Medications Continue amLODIPine [Norvasc] 5 mg PO DAILY #90 tablet Hydrocodone/Acetaminophen [Hydrocodon-Acetaminophn 10-325] 1 each PO Q6H PRN PRN Reason: Pain Cyclobenzaprine [Flexeril] 10 mg PO TID #14 tablet HYDROcodone/ACETAMIN 7.5-325 [[place] 7.5-325] 1 tablet PO Q6H #14 tablet - Follow Up or Referral Follow Up: Jean Paul Tamayo in residents clinic at [facility] [Other] (1 week) - Forms/Instructions Instructions: Hydrocodone/Acetaminophen (By mouth), Pancreatitis (ED), Pancreatitis (DC) Additional Discharge Instructions: Follow up with Primary Care Physician in 1 week after discharge Exam - Constitutional Vitals: Period Temp Pulse Resp BP Sys/Rosario Pulse Ox Last 24 Hr 96.6 F-98.6 F 65-86 18-20 112-154/65-97 94-97 General appearance: normal weight, no acute distress - Head Head exam: Present: normal inspection, normocephalic - Eye Eye exam: Present: EOMI Pupils: Present: TONI - Neck Neck exam: Present: normal inspection. Absent: thyromegaly - Respiratory Respiratory exam: Present: clear to auscultation bilaterally. Absent: rhonchi, stridor, wheezes - Cardiovascular Cardiovascular exam: Present: regular rate and rhythm - GI/Abdominal GI/Abdominal exam: Present: normal bowel sounds, soft. Absent: firm, guarding, tenderness, rebound - Extremities Exam Extremities exam: Present: normal inspection, full ROM. Absent: edema - Neurological Exam Neurological exam: Present: alert, oriented X3, CN II-XII intact - Psychiatric Psychiatric exam: Present: normal affect, normal mood. Absent: agitated, anxious - Skin Skin exam: Present: normal color, warm, dry Discharge Results Labs on day of discharge: Labs from last 24 hours 03/12/17 03/11/17 03/11/17 05:31 23:27 17:59 POC Glucose 116 H 136 H 186 H 03/11/17 11:27 POC Glucose 101 DS: Provider Date of admission: 03/11/17 01:01 Primary care physician: . No PCP Attending physician on admission: Noah Funes MD Discharging clinician: Padmaja Mendoza NP <Julianne Monreal - Last Filed: 03/12/17 15:08> Diagnosis - Discharge Diagnosis (1) Acute pancreatitis Status: Resolved (2) Essential hypertension Status: Chronic (3) Obesity (BMI 35.0-39.9 without comorbidity) Status: Chronic (4) Smoker Status: Chronic
== END 2017-03-12 10:41 | disposition home or self-care (01) ==
LOC: N.5E 21:34 → N.ED 21:34 → SUATTDRO 03-11 01:01 → N.5E 03-11 02:05
PROVIDERS: ADMIT Internal Medicine; ATTEND Internal Medicine

== ENCOUNTER 2018-08-07 11:29 | Observation (INO) ==
[2018-08-07] MEDS ORDERED: ONDANSETRON 4 MG/2 ML VIAL IV STA (11:59)
[2018-08-07] MEDS ORDERED: SODIUM CHLORIDE 0.9% 1,000 ML IV STA ×2 (11:59→13:50)
[2018-08-07 13:21] LABS: Basophils % 0.3 % (0.0-0.8); Eosinophils # 0.1 10*3/uL (0.0-0.87); Eosinophils % 1.4 % (0.00-10.9); Hematocrit 42.1 VOL% (35.7-47.0); Hemoglobin 13.2 GM/DL (12.0-16.0); Immature Granulocytes % 0.4 %; Immature Granulocytes Absolute 0.04 #; Lymphocytes # 2.5 10*3/uL (1.4-4.0); Lymphocytes % 26.8 % (21.3-54.2); Mean Corpuscular HGB Conc 31.4 GM/DL (32-36); Mean Corpuscular Hemoglobin 23 PG (27-34); Mean Platelet Volume 11.1 FL (9.6-12.0); Monocytes # 0.5 10*3/uL (0.11-0.8); Monocytes % 5.5 % (1.7-12.7); Neutrophils # 6.1 10*3/uL (1.4-7.4); Neutrophils % 65.6 % (38.7-73.9); Platelet Count 291 T/CUMM (130-400); Red Blood Count 5.85 MC/CUMM (3.8-5.5); Red Cell Distribution Width 18.8 % (9.3-17.3); White Blood Count 9.3 T/CUMM (4-12)
[2018-08-07 13:35] LABS: Alanine Aminotransferase 23 U/L (13-56); Albumin 3.3 G/DL (3.4-5.0); Alkaline Phosphatase 145 U/L (45-117); Aspartate Amino Transferase 12 U/L (0-37); Bilirubin,Total < 0.39 MG/DL (0.2-1.0); Blood Urea Nitrogen 13 MG/DL (7-18); Calcium 8.9 MG/DL (8.5-10.1); Glucose 277 MG/DL (74-106); Osmolality,Calculated 284.7 MOS/KG (273-304); Potassium 3.9 MMOL/L (3.5-5.1); Sodium 138 MMOL/L (136-145); Total Protein 8.1 G/DL (6.4-8.3)
[2018-08-07] MEDS ORDERED: HYDROmorphone 2 MG/1 ML VIAL IV STA (13:51)
[2018-08-07] MEDS ORDERED: HYDROmorphone 2 MG/1 ML VIAL ONE (13:52)
[2018-08-07] MEDS ORDERED: NICOTINE 21 MG/24 HR PATCH TRANSDERM PRN (14:03)
[2018-08-07] MEDS ORDERED: PROMETHAZINE 25 MG/1 ML VIAL IM PRN (14:03)
[2018-08-07] MEDS ORDERED: ONDANSETRON 4 MG/2 ML VIAL IV PRN (14:03)
[2018-08-07] MEDS ORDERED: hydrALAZINE 20 MG/1 ML VIAL IV PRN (14:10)
[2018-08-07 16:28] LABS: Apearance,Urine Slightly Hazy (Clear); Bacteria,Urine Occasional /HPF (Few); Bilirubin,Urine Negative (Negative); Blood, Urine Negative (Negative); Glucose,Urine (UA) >=500 mg/dL (Negative); Ketones,Urine 5 mg/dL (Negative); Mucus,Urine Occasional /LPF (Occasional); Nitrite,Urine Negative (Negative); Protein,Urine Negative; RBC,Urine 1 /HPF (0-4); Squamous Epithelial Cell,Urine Occasional /HPF (0-10); Urine Color Yellow (Yellow); Urine Specific Gravity 1.017 (1.001-1.035); Urine Urobilinogen < 2.0 EU/DL (0.2-1.0); WBC,Urine 2 /HPF (0-6)
[2018-08-07] MEDS: SODIUM CHLORIDE 0.9% 1,000 ML IV SCH ×2 (16:41→21:34)
[2018-08-07] MEDS: MORPHINE 4 MG/1 ML VIAL IV PRN ×2 (17:18→21:33)
[2018-08-07] MEDS: HEPARIN 5,000 UNIT/1 ML VIAL SUBCUT SCH ×2 (17:18→21:34)
[2018-08-07] MEDS: HYDROmorphone 2 MG/1 ML VIAL IV PRN (19:22)
[2018-08-07] MEDS: LABETALOL 200 MG TABLET PO SCH (21:34)
[2018-08-08] MEDS: SODIUM CHLORIDE 0.9% 1,000 ML IV SCH ×5 (02:35→23:05)
[2018-08-08] MEDS: HYDROmorphone 2 MG/1 ML VIAL IV PRN (04:45)
[2018-08-08 04:51] LABS: Basophils % 0.2 % (0.0-0.8); Eosinophils # 0.1 10*3/uL (0.0-0.87); Eosinophils % 0.9 % (0.00-10.9); Hematocrit 34.9 VOL% (35.7-47.0); Hemoglobin 10.5 GM/DL (12.0-16.0); Immature Granulocytes % 0.3 %; Immature Granulocytes Absolute 0.03 #; Lymphocytes # 2.7 10*3/uL (1.4-4.0); Lymphocytes % 29.9 % (21.3-54.2); Mean Corpuscular HGB Conc 30.1 GM/DL (32-36); Mean Corpuscular Hemoglobin 22 PG (27-34); Mean Corpuscular Volume 74.3 FL (87-102); Mean Platelet Volume 10.8 FL (9.6-12.0); Monocytes # 0.4 10*3/uL (0.11-0.8); Monocytes % 4.9 % (1.7-12.7); Neutrophils # 5.7 10*3/uL (1.4-7.4); Neutrophils % 63.8 % (38.7-73.9); Platelet Count 225 T/CUMM (130-400); Red Cell Distribution Width 17.8 % (9.3-17.3)
[2018-08-08 06:28] LABS: Albumin 2.6 G/DL (3.4-5.0); Calcium 8.3 MG/DL (8.5-10.1); Osmolality,Calculated 285.3 MOS/KG (273-304); Potassium 4.2 MMOL/L (3.5-5.1); Total Protein 6.4 G/DL (6.4-8.3); VLDL CHOLESTEROL 52.8 MG/DL
[2018-08-08] MEDS: HEPARIN 5,000 UNIT/1 ML VIAL SUBCUT SCH ×3 (07:10→23:05)
[2018-08-08] MEDS ORDERED: hydroCHLOROthiazide 12.5 MG CAPSULE PO SCH (09:00)
[2018-08-08] MEDS: amLODIPine 10 MG TABLET PO SCH (11:04)
[2018-08-08] MEDS: LABETALOL 200 MG TABLET PO SCH ×2 (11:04→20:10)
[2018-08-08] MEDS: PANTOPRAZOLE 40 MG VIAL IV SCH (11:04)
[2018-08-08] MEDS: MORPHINE 4 MG/1 ML VIAL IV PRN (11:06)
[2018-08-08] MEDS ORDERED: GLUCAGON 1 MG VIAL IM PRN (13:38)
[2018-08-08] MEDS ORDERED: DEXTROSE 50% 25 GM/50 ML SYRINGE IV PRN (13:38)
[2018-08-08] MEDS: INSULIN REGULAR 100 UNIT/ML SUBCUT SCH ×2 (16:42→22:00)
[2018-08-08] MEDS ORDERED: ATORVASTATIN 40 MG TABLET PO SCH (21:00)
[2018-08-09] MEDS: SODIUM CHLORIDE 0.9% 1,000 ML IV SCH ×2 (04:36→08:25)
[2018-08-09 05:11] LABS: Basophils % 0.4 % (0.0-0.8); Eosinophils # 0.1 10*3/uL (0.0-0.87); Eosinophils % 1.9 % (0.00-10.9); Hematocrit 34.1 VOL% (35.7-47.0); Hemoglobin 10.3 GM/DL (12.0-16.0); Immature Granulocytes % 0.3 %; Immature Granulocytes Absolute 0.02 #; Lymphocytes # 2.7 10*3/uL (1.4-4.0); Lymphocytes % 39.8 % (21.3-54.2); Mean Corpuscular HGB Conc 30.2 GM/DL (32-36); Mean Corpuscular Hemoglobin 22 PG (27-34); Mean Corpuscular Volume 73.5 FL (87-102); Mean Platelet Volume 11.3 FL (9.6-12.0); Monocytes # 0.5 10*3/uL (0.11-0.8); Monocytes % 6.8 % (1.7-12.7); Neutrophils # 3.5 10*3/uL (1.4-7.4); Neutrophils % 50.8 % (38.7-73.9); Platelet Count 223 T/CUMM (130-400); Red Blood Count 4.64 MC/CUMM (3.8-5.5); Red Cell Distribution Width 18.1 % (9.3-17.3); White Blood Count 6.8 T/CUMM (4-12)
[2018-08-09 05:29] LABS: Albumin 2.6 G/DL (3.4-5.0); Bilirubin,Total 0.7 MG/DL (0.2-1.0); Calcium 8.6 MG/DL (8.5-10.1); Osmolality,Calculated 282.1 MOS/KG (273-304); Potassium 3.8 MMOL/L (3.5-5.1); Total Protein 6.4 G/DL (6.4-8.3)
[2018-08-09] MEDS: HEPARIN 5,000 UNIT/1 ML VIAL SUBCUT SCH (06:49)
[2018-08-09] MEDS ORDERED: ATORVASTATIN 40 MG TABLET PO SCH (08:05)
[2018-08-09] MEDS: LABETALOL 200 MG TABLET PO SCH (08:20)
[2018-08-09] MEDS: PANTOPRAZOLE 40 MG VIAL IV SCH (08:20)
[2018-08-09] MEDS: amLODIPine 10 MG TABLET PO SCH (08:20)
[2018-08-09] MEDS: INSULIN REGULAR 100 UNIT/ML SUBCUT SCH (08:23)
[2018-08-09 08:29] VITALS: BP 148/67
[2018-08-09] MEDS ORDERED: INSULIN GLARGINE 100 UNIT/ML SUBCUT SCH ×2 (14:00)
== END 2018-08-09 10:39 | disposition home or self-care (01) ==
LOC: N.EDINP 11:29 → N.ED 11:29 → N.EDINP 16:23 → N.2E 16:26
PROVIDERS: ADMIT Hospitalist; ATTEND Hospitalist

== ENCOUNTER 2018-12-15 21:34 | Inpatient (IN) ==
[2018-12-15] MEDS ORDERED: KETOROLAC 60 MG/2 ML VIAL IM ONE (22:25)
[2018-12-15] MEDS ORDERED: KETOROLAC 30 MG/1 ML VIAL IV STA (22:38)
[2018-12-15] MEDS ORDERED: ONDANSETRON 4 MG/2 ML VIAL IV STA (22:38)
[2018-12-15] MEDS ORDERED: PANTOPRAZOLE 40 MG VIAL IV STA (22:38)
[2018-12-15] MEDS ORDERED: ALUM/MAG/SIMETH/LIDO VISC 1:1 30 ML BOTTLE PO STA (22:38)
[2018-12-15] MEDS ORDERED: SODIUM CHLORIDE 0.9% 500 ML IV STA (22:38)
[2018-12-15 22:49] LABS: Basophils % 0.4 % (0.0-0.8); Eosinophils # 0.1 10*3/uL (0.0-0.87); Eosinophils % 0.9 % (0.00-10.9); Hematocrit 40.2 VOL% (35.7-47.0); Hemoglobin 12.4 GM/DL (12.0-16.0); Immature Granulocytes % 0.3 %; Immature Granulocytes Absolute 0.02 #; Lymphocytes # 1.9 10*3/uL (1.4-4.0); Lymphocytes % 27.2 % (21.3-54.2); Mean Corpuscular HGB Conc 30.8 GM/DL (32-36); Mean Corpuscular Volume 73.4 FL (87-102); Mean Platelet Volume 10.7 FL (9.6-12.0); Monocytes % 6.8 % (1.7-12.7); Neutrophils % 64.4 % (38.7-73.9); Platelet Count 224 T/CUMM (130-400); Red Blood Count 5.48 MC/CUMM (3.8-5.5); Red Cell Distribution Width 15.9 % (9.3-17.3); White Blood Count 6.9 T/CUMM (4-12)
[2018-12-15 23:10] LABS: Alanine Aminotransferase 35 U/L (13-56); Albumin 3.3 G/DL (3.4-5.0); Alkaline Phosphatase 133 U/L (45-117); Amylase 296 U/L (25-115); Aspartate Amino Transferase 25 U/L (0-37); Bilirubin,Total < 0.39 MG/DL (0.2-1.0); Blood Urea Nitrogen 10 MG/DL (7-18); Calcium 8.8 MG/DL (8.5-10.1); Glucose 406 MG/DL (74-106); Osmolality,Calculated 294.4 MOS/KG (273-304); Total Protein 7.4 G/DL (6.4-8.3)
[2018-12-15 23:33] LABS: Apearance,Urine CLEAR (Clear); Bilirubin,Urine Negative (Negative); Blood, Urine Negative (Negative); Glucose,Urine (UA) >=500 mg/dL (Negative); Ketones,Urine Negative (Negative); Nitrite,Urine Negative (Negative); Protein,Urine Negative; RBC,Urine 2 /HPF (0-4); Squamous Epithelial Cell,Urine Occasional /HPF (0-10); Urine Color Yellow (Yellow); Urine Specific Gravity 1.026 (1.001-1.035); Urine Urobilinogen < 2.0 EU/DL (0.2-1.0); WBC,Urine <1 /HPF (0-6)
[2018-12-16] MEDS ORDERED: HYDROmorphone 2 MG/1 ML VIAL IV ONE (00:19)
[2018-12-16] MEDS ORDERED: ONDANSETRON 4 MG/2 ML VIAL IV STA (00:19)
[2018-12-16] MEDS ORDERED: MORPHINE 4 MG/1 ML VIAL IV PRN (01:19)
[2018-12-16] MEDS ORDERED: ONDANSETRON 4 MG/2 ML VIAL IV PRN (01:19)
[2018-12-16] MEDS ORDERED: DEXTROSE 50% 25 GM/50 ML VIAL IV PRN (01:22)
[2018-12-16] MEDS ORDERED: GLUCAGON 1 MG VIAL IM PRN (01:22)
[2018-12-16] MEDS: SODIUM CHLORIDE 0.9% 1,000 ML IV SCH ×2 (03:15→17:29)
[2018-12-16] MEDS: ENOXAPARIN 40 MG/0.4 ML SYRINGE SUBCUT SCH (04:15)
[2018-12-16] MEDS: INSULIN REGULAR 100 UNIT/ML SUBCUT SCH ×5 (04:23→20:25)
[2018-12-16] MEDS: HYDROmorphone 2 MG/1 ML VIAL IV PRN ×2 (05:39→10:30)
[2018-12-16 07:19] LABS: Basophils % 0.4 % (0.0-0.8); Eosinophils # 0.1 10*3/uL (0.0-0.87); Hematocrit 38.7 VOL% (35.7-47.0); Hemoglobin 12.1 GM/DL (12.0-16.0); Immature Granulocytes % 0.3 %; Immature Granulocytes Absolute 0.02 #; Lymphocytes # 1.8 10*3/uL (1.4-4.0); Lymphocytes % 26.2 % (21.3-54.2); Mean Corpuscular HGB Conc 31.3 GM/DL (32-36); Mean Corpuscular Volume 73.6 FL (87-102); Mean Platelet Volume 11.1 FL (9.6-12.0); Monocytes % 6.5 % (1.7-12.7); Neutrophils % 65.6 % (38.7-73.9); Platelet Count 233 T/CUMM (130-400); Red Blood Count 5.26 MC/CUMM (3.8-5.5); Red Cell Distribution Width 16.2 % (9.3-17.3)
[2018-12-16 07:49] LABS: Albumin 3.4 G/DL (3.4-5.0); Bilirubin,Total 0.4 MG/DL (0.2-1.0); Calcium 8.8 MG/DL (8.5-10.1); Osmolality,Calculated 292.3 MOS/KG (273-304); Total Protein 7.4 G/DL (6.4-8.3)
[2018-12-16 08:34] LABS: Risk Ratio 4.9
[2018-12-16] MEDS ORDERED: CYCLOBENZAPRINE 10 MG TABLET PO PRN (09:00)
[2018-12-16] MEDS: FAMOTIDINE 20 MG TABLET PO SCH (10:09)
[2018-12-16] MEDS: LABETALOL 200 MG TABLET PO SCH ×2 (10:09→20:23)
[2018-12-16] MEDS: amLODIPine 5 MG TABLET PO SCH (10:09)
[2018-12-16] MEDS: ATORVASTATIN 40 MG TABLET PO SCH (20:24)
[2018-12-17] MEDS: HYDROmorphone 2 MG/1 ML VIAL IV PRN (01:59)
[2018-12-17] MEDS: SODIUM CHLORIDE 0.9% 1,000 ML IV SCH ×2 (02:30→16:33)
[2018-12-17] MEDS: FAMOTIDINE 20 MG TABLET PO SCH (10:02)
[2018-12-17] MEDS: LABETALOL 200 MG TABLET PO SCH ×2 (10:02→20:50)
[2018-12-17] MEDS: ENOXAPARIN 40 MG/0.4 ML SYRINGE SUBCUT SCH (10:02)
[2018-12-17] MEDS: amLODIPine 5 MG TABLET PO SCH (10:03)
[2018-12-17] MEDS: INSULIN REGULAR 100 UNIT/ML SUBCUT SCH ×4 (10:11→20:49)
[2018-12-17] MEDS: CHOLESTYRAMINE 4 GM PACK PO SCH ×2 (16:25→20:51)
[2018-12-17] MEDS: ATORVASTATIN 40 MG TABLET PO SCH (20:50)
[2018-12-18] MEDS: SODIUM CHLORIDE 0.9% 1,000 ML IV SCH (05:02)
[2018-12-18 08:36] VITALS: BP 155/84
[2018-12-18] MEDS: FAMOTIDINE 20 MG TABLET PO SCH (10:10)
[2018-12-18] MEDS: ENOXAPARIN 40 MG/0.4 ML SYRINGE SUBCUT SCH (10:10)
[2018-12-18] MEDS: CHOLESTYRAMINE 4 GM PACK PO SCH (10:11)
[2018-12-18] MEDS: amLODIPine 5 MG TABLET PO SCH (10:16)
[2018-12-18] MEDS: LABETALOL 200 MG TABLET PO SCH (10:17)
[2018-12-18] MEDS: INSULIN REGULAR 100 UNIT/ML SUBCUT SCH ×2 (10:17→12:20)
== END 2018-12-18 11:45 | disposition home or self-care (01) | DRG 439 ==
LOC: N.ED 21:34 → N.EDINP 12-16 01:19 → N.2E 12-16 02:32
PROVIDERS: ADMIT Internal Medicine; ATTEND Internal Medicine

== ENCOUNTER 2020-02-04 20:49 | Observation (INO) ==
[2020-02-04 22:42] LABS: Basophils % 0.3 % (0.0-0.8); Eosinophils # 0.1 10*3/uL (0.0-0.87); Eosinophils % 0.9 % (0.00-10.9); Hematocrit 41.4 VOL% (35.7-47.0); Hemoglobin 12.9 GM/DL (12.0-16.0); Immature Granulocytes % 0.4 %; Immature Granulocytes Absolute 0.04 #; Lymphocytes # 2.6 10*3/uL (1.4-4.0); Mean Corpuscular HGB Conc 31.2 GM/DL (32-36); Mean Corpuscular Volume 73.9 FL (87-102); Mean Platelet Volume 10.4 FL (9.6-12.0); Monocytes % 6.8 % (1.7-12.7); Neutrophils % 67.6 % (38.7-73.9); Platelet Count 263 T/CUMM (130-400); Red Cell Distribution Width 17.2 % (9.3-17.3)
[2020-02-04 22:49] LABS: Apearance,Urine CLEAR (Clear); Bilirubin,Urine Negative (Negative); Blood, Urine Negative (Negative); Glucose,Urine (UA) Negative (Negative); Ketones,Urine Negative (Negative); Nitrite,Urine Negative (Negative); Protein,Urine Negative; RBC,Urine 1 /HPF (0-4); Squamous Epithelial Cell,Urine Occasional /HPF (0-10); Urine Color Yellow (Yellow); Urine Specific Gravity 1.017 (1.001-1.035); WBC,Urine 1 /HPF (0-6)
[2020-02-04 22:58] LABS: Alanine Aminotransferase 19 U/L (13-56); Albumin 3.2 G/DL (3.4-5.0); Alkaline Phosphatase 120 U/L (45-117); Aspartate Amino Transferase 11 U/L (0-37); Bilirubin,Total < 0.39 MG/DL (0.2-1.0); Blood Urea Nitrogen 11 MG/DL (7-18); Calcium 9.1 MG/DL (8.5-10.1); Estimated Glom Filtration Rate 134 ML/MIN; Glucose 149 MG/DL (74-106); Osmolality,Calculated 276.7 MOS/KG (273-304); Total Protein 7.9 G/DL (6.4-8.3)
[2020-02-05] MEDS ORDERED: SODIUM CHLORIDE 0.9% 500 ML IV STA (00:22)
[2020-02-05] MEDS ORDERED: PANTOPRAZOLE 40 MG VIAL IV STA (00:22)
[2020-02-05] MEDS ORDERED: ONDANSETRON 4 MG/2 ML VIAL IV STA (00:22)
[2020-02-05] MEDS ORDERED: ALUM/MAG/SIMETH/LIDO VISC 1:1 30 ML BOTTLE PO STA (00:22)
[2020-02-05] MEDS ORDERED: KETOROLAC 30 MG/1 ML VIAL IV STA (00:22)
[2020-02-05] MEDS ORDERED: HYDROmorphone 2 MG/1 ML VIAL IV ONE (00:53)
[2020-02-05] MEDS ORDERED: NICOTINE 21 MG/24 HR PATCH TRANSDERM PRN (02:29)
[2020-02-05] MEDS ORDERED: ALUMINUM/MAGNES/SIMETH MAX STR 30 ML UDCUP PO PRN (02:29)
[2020-02-05] MEDS ORDERED: GLUCAGON 1 MG VIAL IM PRN ×2 (02:29→07:01)
[2020-02-05] MEDS ORDERED: DEXTROSE 50% 25 GM/50 ML VIAL IV PRN ×2 (02:29→07:01)
[2020-02-05] MEDS ORDERED: ONDANSETRON 4 MG/2 ML VIAL IV PRN (02:29)
[2020-02-05] MEDS ORDERED: hydrALAZINE 20 MG/1 ML VIAL IV PRN (02:29)
[2020-02-05] MEDS: SODIUM CHLORIDE 0.9% 1,000 ML IV SCH ×3 (03:56→19:22)
[2020-02-05 04:13] LABS: Risk Ratio 5.82; VLDL CHOLESTEROL 41.4 MG/DL
[2020-02-05] MEDS ORDERED: FAMOTIDINE 20 MG TABLET PO PRN (07:01)
[2020-02-05] MEDS ORDERED: CYCLOBENZAPRINE 10 MG TABLET PO PRN (07:01)
[2020-02-05] MEDS: INSULIN LISPRO 100 UNIT/ML SUBCUT SCH ×4 (07:14→20:25)
[2020-02-05] MEDS: ASPIRIN EC 81 MG TABLET PO SCH (09:11)
[2020-02-05] MEDS: amLODIPine 10 MG TABLET PO SCH (10:06)
[2020-02-05] MEDS: MORPHINE 4 MG/1 ML VIAL IV PRN ×2 (10:08→17:33)
[2020-02-05] MEDS ORDERED: ATORVASTATIN 80 MG TABLET PO SCH (21:00)
[2020-02-05] MEDS ORDERED: ATORVASTATIN 40 MG TABLET PO SCH (21:00)
[2020-02-06] MEDS: MORPHINE 4 MG/1 ML VIAL IV PRN ×3 (01:38→10:57)
[2020-02-06] MEDS: SODIUM CHLORIDE 0.9% 1,000 ML IV SCH (03:24)
[2020-02-06 05:59] LABS: Basophils % 0.4 % (0.0-0.8); Eosinophils # 0.2 10*3/uL (0.0-0.87); Eosinophils % 2.1 % (0.00-10.9); Hematocrit 35.4 VOL% (35.7-47.0); Hemoglobin 11.3 GM/DL (12.0-16.0); Immature Granulocytes % 0.3 %; Immature Granulocytes Absolute 0.02 #; Lymphocytes # 2.7 10*3/uL (1.4-4.0); Lymphocytes % 36.4 % (21.3-54.2); Mean Corpuscular HGB Conc 31.9 GM/DL (32-36); Mean Corpuscular Volume 72.8 FL (87-102); Mean Platelet Volume 11.1 FL (9.6-12.0); Monocytes % 7.2 % (1.7-12.7); Neutrophils % 53.6 % (38.7-73.9); Platelet Count 215 T/CUMM (130-400); Red Blood Count 4.86 MC/CUMM (3.8-5.5); Red Cell Distribution Width 16.7 % (9.3-17.3); White Blood Count 7.5 T/CUMM (4-12)
[2020-02-06 06:23] LABS: Albumin 2.7 G/DL (3.4-5.0); Bilirubin,Total 0.4 MG/DL (0.2-1.0); Calcium 8.7 MG/DL (8.5-10.1); Osmolality,Calculated 280.3 MOS/KG (273-304); Total Protein 6.7 G/DL (6.4-8.3)
[2020-02-06] MEDS: INSULIN LISPRO 100 UNIT/ML SUBCUT SCH ×4 (08:44→20:27)
[2020-02-06] MEDS: ASPIRIN EC 81 MG TABLET PO SCH (09:59)
[2020-02-06] MEDS: amLODIPine 10 MG TABLET PO SCH (10:00)
[2020-02-06] MEDS: SODIUM CHLORIDE 0.45% 1,000 ML IV SCH ×3 (11:34→20:28)
[2020-02-06] MEDS: ENOXAPARIN 40 MG/0.4 ML SYRINGE SUBCUT SCH (13:04)
[2020-02-06] MEDS: HYDROmorphone 2 MG/1 ML VIAL IV PRN ×2 (16:37→20:29)
[2020-02-06] MEDS: ATORVASTATIN 20 MG TABLET PO SCH (20:29)
[2020-02-07] MEDS: HYDROmorphone 2 MG/1 ML VIAL IV PRN ×4 (00:18→18:17)
[2020-02-07] MEDS: SODIUM CHLORIDE 0.45% 1,000 ML IV SCH ×5 (04:02→22:00)
[2020-02-07] MEDS: INSULIN LISPRO 100 UNIT/ML SUBCUT SCH ×4 (07:48→20:49)
[2020-02-07 08:40] LABS: Basophils % 0.4 % (0.0-0.8); Eosinophils # 0.1 10*3/uL (0.0-0.87); Eosinophils % 0.8 % (0.00-10.9); Hematocrit 38.3 VOL% (35.7-47.0); Hemoglobin 12.1 GM/DL (12.0-16.0); Immature Granulocytes % 0.2 %; Immature Granulocytes Absolute 0.02 #; Lymphocytes # 1.8 10*3/uL (1.4-4.0); Lymphocytes % 21.2 % (21.3-54.2); Mean Corpuscular HGB Conc 31.6 GM/DL (32-36); Mean Platelet Volume 10.6 FL (9.6-12.0); Monocytes % 5.9 % (1.7-12.7); Neutrophils % 71.5 % (38.7-73.9); Platelet Count 250 T/CUMM (130-400); Red Blood Count 5.32 MC/CUMM (3.8-5.5); Red Cell Distribution Width 16.4 % (9.3-17.3); White Blood Count 8.3 T/CUMM (4-12)
[2020-02-07 09:08] LABS: Albumin 3.3 G/DL (3.4-5.0); Bilirubin,Total 0.6 MG/DL (0.2-1.0); Calcium 9.4 MG/DL (8.5-10.1); Osmolality,Calculated 266.2 MOS/KG (273-304)
[2020-02-07] MEDS: LABETALOL 200 MG TABLET PO SCH ×2 (09:17→20:41)
[2020-02-07] MEDS: amLODIPine 10 MG TABLET PO SCH (09:17)
[2020-02-07] MEDS: ASPIRIN EC 81 MG TABLET PO SCH (09:17)
[2020-02-07] MEDS: ENOXAPARIN 40 MG/0.4 ML SYRINGE SUBCUT SCH (12:41)
[2020-02-07] MEDS: ATORVASTATIN 20 MG TABLET PO SCH (20:41)
[2020-02-08 05:52] LABS: Basophils % 0.5 % (0.0-0.8); Eosinophils # 0.1 10*3/uL (0.0-0.87); Eosinophils % 1.6 % (0.00-10.9); Hematocrit 37.5 VOL% (35.7-47.0); Hemoglobin 11.5 GM/DL (12.0-16.0); Immature Granulocytes % 0.5 %; Immature Granulocytes Absolute 0.03 #; Lymphocytes # 2.1 10*3/uL (1.4-4.0); Lymphocytes % 33.5 % (21.3-54.2); Mean Corpuscular HGB Conc 30.7 GM/DL (32-36); Mean Corpuscular Volume 73.4 FL (87-102); Mean Platelet Volume 10.2 FL (9.6-12.0); Monocytes % 5.8 % (1.7-12.7); Neutrophils % 58.1 % (38.7-73.9); Platelet Count 239 T/CUMM (130-400); Red Blood Count 5.11 MC/CUMM (3.8-5.5); Red Cell Distribution Width 16.1 % (9.3-17.3); White Blood Count 6.3 T/CUMM (4-12)
[2020-02-08] MEDS: SODIUM CHLORIDE 0.45% 1,000 ML IV SCH (06:09)
[2020-02-08 06:18] LABS: Bilirubin,Total 0.7 MG/DL (0.2-1.0); Calcium 8.9 MG/DL (8.5-10.1); Osmolality,Calculated 279.1 MOS/KG (273-304); Total Protein 7.1 G/DL (6.4-8.3)
[2020-02-08] MEDS: amLODIPine 10 MG TABLET PO SCH (08:55)
[2020-02-08] MEDS: ASPIRIN EC 81 MG TABLET PO SCH (08:55)
[2020-02-08] MEDS: LABETALOL 200 MG TABLET PO SCH (08:55)
[2020-02-08] MEDS: INSULIN LISPRO 100 UNIT/ML SUBCUT SCH ×2 (08:56→11:43)
[2020-02-08 11:44] VITALS: BP 132/66
[2020-02-08] MEDS: ENOXAPARIN 40 MG/0.4 ML SYRINGE SUBCUT SCH (14:00)
== END 2020-02-08 13:59 | disposition home or self-care (01) ==
LOC: N.EDINP 20:49 → N.ED 20:49 → SUATTDRO 02-05 02:29 → N.3E 02-05 03:25
PROVIDERS: ADMIT Family Medicine; ATTEND Internal Medicine

== ENCOUNTER 2020-07-26 12:27 | Observation (INO) ==
[2020-07-26 13:02] LABS: Basophils % 0.4 % (0.0-0.8); Eosinophils # 0.2 10*3/uL (0.0-0.87); Eosinophils % 2.1 % (0.00-10.9); Hematocrit 40.2 VOL% (35.7-47.0); Hemoglobin 12.5 GM/DL (12.0-16.0); Immature Granulocytes % 0.1 %; Immature Granulocytes Absolute 0.01 #; Lymphocytes # 2.7 10*3/uL (1.4-4.0); Lymphocytes % 36.7 % (21.3-54.2); Mean Corpuscular HGB Conc 31.1 GM/DL (32-36); Mean Platelet Volume 10.5 FL (9.6-12.0); Monocytes % 5.2 % (1.7-12.7); Neutrophils % 55.5 % (38.7-73.9); Platelet Count 288 T/CUMM (130-400); Red Blood Count 5.43 MC/CUMM (3.8-5.5); Red Cell Distribution Width 17.5 % (9.3-17.3); White Blood Count 7.2 T/CUMM (4-12)
[2020-07-26 13:31] LABS: Anisocytosis 1+
[2020-07-26 13:32] LABS: Atypical Lymphocytes Few; Hypochromasia Slight; Microcytosis 1+; Platelet Estimate Normal; Polychromasia Slight
[2020-07-26 13:35] LABS: Eosinophils 2 % (0-10); Lymphocytes 37 % (20-55); Segmented Neutrophils 56 % (50-85); Total Cells Counted 100
[2020-07-26 13:48] LABS: Albumin 3.5 G/DL (3.4-5.0); Bilirubin,Total 0.4 MG/DL (0.2-1.0); Calcium 9.4 MG/DL (8.5-10.1); Osmolality,Calculated 282.1 MOS/KG (273-304); Total Protein 7.8 G/DL (6.4-8.3)
[2020-07-26] MEDS ORDERED: ONDANSETRON 4 MG/2 ML VIAL IV STA (13:48)
[2020-07-26] MEDS ORDERED: MORPHINE 4 MG/1 ML VIAL IV STA (13:48)
[2020-07-26] MEDS ORDERED: ASPIRIN CHEW 81 MG TABLET PO STA (13:48)
[2020-07-26 15:28] LABS: Barbiturates Screen,Urine Negative (Negative); Benzodiazepines Screen,Urine Negative (Negative); Cannabinoid Screen,Urine Negative (Negative); Opiate Screen,Urine Negative (Negative); Phencyclidine Screen,Urine Negative (Negative)
[2020-07-26] MEDS ORDERED: DEXTROSE 50% 25 GM/50 ML VIAL IV PRN (17:06)
[2020-07-26] MEDS ORDERED: DOCUSATE SODIUM 100 MG CAPSULE PO PRN (17:06)
[2020-07-26] MEDS ORDERED: NICOTINE 21 MG/24 HR PATCH TRANSDERM PRN (17:06)
[2020-07-26] MEDS ORDERED: ACETAMINOPHEN 325 MG TABLET PO PRN (17:06)
[2020-07-26] MEDS ORDERED: GLUCAGON 1 MG VIAL IM PRN (17:06)
[2020-07-26] MEDS ORDERED: hydrALAZINE 20 MG/1 ML VIAL IV PRN (17:06)
[2020-07-26] MEDS ORDERED: ZALEPLON 5 MG CAPSULE PO PRN (17:06)
[2020-07-26] MEDS ORDERED: ONDANSETRON 4 MG/2 ML VIAL IV PRN (17:06)
[2020-07-26] MEDS ORDERED: CYCLOBENZAPRINE 10 MG TABLET PO PRN (17:13)
[2020-07-26] MEDS ORDERED: ALUM/MAG/SIMETH/LIDO VISC 1:1 30 ML BOTTLE PO STA (17:15)
[2020-07-26] MEDS ORDERED: HYDROmorphone 2 MG/1 ML VIAL IV PRN (17:24)
[2020-07-26 18:16] LABS: Amorphous Crystals,Urine Occasional /HPF (Few); Bacteria,Urine Occasional /HPF (Few); Bilirubin,Urine Negative (Negative); Blood, Urine Negative (Negative); Glucose,Urine (UA) Negative (Negative); Ketones,Urine Negative (Negative); Mucus,Urine Occasional /LPF (Occasional); Nitrite,Urine Negative (Negative); Protein,Urine Negative; RBC,Urine 1 /HPF (0-4); Squamous Epithelial Cell,Urine Few /HPF (0-10); Urine Appearance CLOUDY (Clear); Urine Color Yellow (Yellow); Urine Specific Gravity 1.013 (1.001-1.035); WBC,Urine 1 /HPF (0-6)
[2020-07-26] MEDS ORDERED: INFLUENZA VIRUS VACCINE 0.5 ML SYRINGE IM ONE (19:19)
[2020-07-26] MEDS ORDERED: ZOLPIDEM 5 MG TABLET PO SCH (21:00)
[2020-07-26] MEDS ORDERED: ATORVASTATIN 80 MG TABLET PO SCH (21:00)
[2020-07-26] MEDS: PANTOPRAZOLE 40 MG TABLET PO SCH (22:49)
[2020-07-26] MEDS: LABETALOL 200 MG TABLET PO SCH (22:49)
[2020-07-26] MEDS: INSULIN REGULAR 100 UNIT/ML SUBCUT SCH (22:56)
[2020-07-27 05:57] LABS: Basophils # 0.1 10*3/uL (0.0-0.2); Basophils % 0.7 % (0.0-0.8); Eosinophils # 0.2 10*3/uL (0.0-0.87); Eosinophils % 2.7 % (0.00-10.9); Hematocrit 37.9 VOL% (35.7-47.0); Hemoglobin 11.7 GM/DL (12.0-16.0); Immature Granulocytes % 0.3 %; Immature Granulocytes Absolute 0.02 #; Lymphocytes # 2.7 10*3/uL (1.4-4.0); Lymphocytes % 37.8 % (21.3-54.2); Mean Corpuscular HGB Conc 30.9 GM/DL (32-36); Mean Corpuscular Volume 74.2 FL (87-102); Monocytes % 6.7 % (1.7-12.7); Neutrophils % 51.8 % (38.7-73.9); Platelet Count 258 T/CUMM (130-400); Red Blood Count 5.11 MC/CUMM (3.8-5.5); White Blood Count 7.1 T/CUMM (4-12)
[2020-07-27 06:23] LABS: Hypochromasia 1+; Microcytosis 1+; Platelet Estimate Adequate
[2020-07-27 06:36] LABS: Albumin 2.9 G/DL (3.4-5.0); Bilirubin,Total 1.2 MG/DL (0.2-1.0); Calcium 8.8 MG/DL (8.5-10.1); Osmolality,Calculated 284.1 MOS/KG (273-304); Potassium 3.9 MMOL/L (3.5-5.1); Risk Ratio 6.74; Thyroid Stimulating Hormone 1.28 uIU/ml (0.358-3.74); VLDL CHOLESTEROL 25.4 MG/DL
[2020-07-27] MEDS: INSULIN REGULAR 100 UNIT/ML SUBCUT SCH ×2 (08:42→11:41)
[2020-07-27] MEDS ORDERED: PANTOPRAZOLE 40 MG TABLET PO SCH (09:00)
[2020-07-27] MEDS ORDERED: ASPIRIN EC 81 MG TABLET PO SCH (09:00)
[2020-07-27] MEDS ORDERED: amLODIPine 10 MG TABLET PO SCH (09:00)
[2020-07-27] MEDS ORDERED: NITROGLYCERIN SL 0.4 MG TABLET SL PRN (09:38)
[2020-07-27] MEDS: PANTOPRAZOLE 40 MG TABLET PO SCH (10:06)
[2020-07-27] MEDS: LABETALOL 200 MG TABLET PO SCH (10:06)
[2020-07-27 11:22] VITALS: BP 162/79
[2020-07-27] MEDS ORDERED: ROSUVASTATIN 20 MG TABLET PO SCH (21:00)
== END 2020-07-27 12:10 | disposition home or self-care (01) ==
LOC: N.ED 12:27 → N.EDINP 12:27 → N.TELEN 18:15
PROVIDERS: ADMIT Internal Medicine; ATTEND Internal Medicine